=== PATIENT | female | born 1930 | race Caucasian/White ===

== ENCOUNTER 2017-11-07 23:25 | Emergency (ER) | payer OTHER ==
[~2017-11-07] VITALS: Ht 162.6 cm; Wt 74.8 kg
[2017-11-07 23:36] VITALS: Ht 162.6 cm; Wt 74.8 kg
[2017-11-08 00:28] VITALS: BP 150/63
== END 2017-11-08 00:28 | disposition home or self-care (01) ==
LOC: ED 23:25
DX: S30.0XXA Contusion of lower back and pelvis, initial encounter (principal); I10 Essential (primary) hypertension; E11.9 Type 2 diabetes mellitus without complications; F03.90 Unspecified dementia, unspecified severity, without behavioral disturbance, psychotic disturbance, mood disturbance, and anxiety; Z88.0 Allergy status to penicillin; Z88.2 Allergy status to sulfonamides; W19.XXXA Unspecified fall, initial encounter; Y93.89 Activity, other specified; Y92.89 Other specified places as the place of occurrence of the external cause; Y99.8 Other external cause status